=== PATIENT | male | born 1950 ===

== ENCOUNTER 2018-10-31 09:06 | Emergency (ER) | payer OTHER ==
[~2018-10-31] VITALS: Ht 167.6 cm; Wt 108.9 kg
[2018-10-31] MEDS ORDERED: TRADJENTA5 MG (09:15)
[2018-10-31] MEDS ORDERED: ACTOS15 MG (09:15)
[2018-10-31] MEDS ORDERED: DONEPEZIL HCL10 MG (09:16)
[2018-10-31] MEDS ORDERED: ESCITALOPRAM (09:18)
[2018-10-31] MEDS ORDERED: LISINOPRIL5 MG (09:18)
[2018-10-31] MEDS ORDERED: AGGRENOX 25 MG1 EACH PO (09:19)
[2018-10-31] MEDS ORDERED: IBU600 MG (09:21)
[2018-10-31] MEDS ORDERED: MONTELUKAST SOD10 MG (09:21)
[2018-10-31] MEDS ORDERED: ATORVASTATIN CA10 MG (09:22)
== END 2018-10-31 10:01 | disposition home or self-care (01) ==
LOC: ER 09:06
DX: G24.3 Spasmodic torticollis (principal)